=== PATIENT | female | born 1940 | race Caucasian/White ===

== ENCOUNTER → 2018-12-30 13:40 | Outpatient (CLI) | payer MEDICARE, BC, SELFPAY ==
--- NOTE | 2018-12-30 13:48 | CA_ITS ---
PROCEDURE: 2-D M-mode and color Doppler study INDICATIONS FOR THE TEST: Chest pain COPD Heart Murmur Tobacco Smokingex Palpitations Fatigue Syncope Edema Hypertension+Diabetes Mellitus Rheumatic Fever SOB TEIXEIRA Obesity Hyperlipidemia+ Family History HD Additional History CAD,STENTS,ABN EKG PATIENT INFORMATION HEIGHT: 62 WEIGHT:157 GENDER: Female B/P:143/67 2-D/M-MODE INTERPRETATION: 2-D MEASUREMENTS OBSERVED VALUES IN CMS Right Ventricular Dimension (RVDd) 2.6 Interventricular Septum (Thickness)(IVsd) 1.4 Left Ventricular Internal Dimensions(LVIDd) 5.4 Left Ventricular Posterior Wall (Thickness)(LVPWd) 0.8 Aortic Root 2.2 Aortic Cusp Separation 1.8 Left Atrial Dimensions (LAD) 3.5 2D 1. Left atrium is mildly enlarged, left ventricle is normal size, mild concentric left ventricular hypertrophy, visually estimated ejection fraction 45%, there is marked hypokinesis involving the inferior and inferobasal wall. 2. The right atrium and right ventricle are normal size and contractility. 3. The aortic valve is minimally thickened and calcified. 4. The mitral and tricuspid valvular grossly normal. 5. The pulmonic valve is poorly visualized. 6. No significant pericardial effusion noted. DOPPLER INTERROGATION: Doppler interrogation of the aortic, mitral and tricuspid valvular presence of mild mitral and tricuspid regurgitation, tricuspid regurgitation jet velocity is inadequate for calculation of the right ventricular systolic pressure, grade 1 diastolic dysfunction seen with tissue Doppler evidence of raised left atrial pressure. Inferior vena cava is normal size with normal is poorly collapse. CONCLUSION: 1. Mildly enlarged left atrium, normal left ventricular size, mild concentric left ventricular hypertrophy, visually estimated ejection fraction 45% with segmental wall motion abnormality described above. Grade 1 diastolic dysfunction seen with tissue Doppler evidence of raised left atrial pressure. 2. Mild mitral and tricuspid regurgitation. Inferior vena cava is normal size with normal inspiratory collapse. 3. No significant pericardial effusion noted.
== END ==
PROVIDERS: PCP Family Medicine; Visit Provider Nurse Practitioner Family
DX: E78.5 Hyperlipidemia, unspecified (principal); F02.80 Dementia in other diseases classified elsewhere, unspecified severity, without behavioral disturbance, psychotic disturbance, mood disturbance, and anxiety; G30.9 Alzheimer's disease, unspecified; I11.0 Hypertensive heart disease with heart failure; I25.10 Atherosclerotic heart disease of native coronary artery without angina pectoris; R42 Dizziness and giddiness; R94.31 Abnormal electrocardiogram [ECG] [EKG]; Z95.5 Presence of coronary angioplasty implant and graft
CPT/HCPCS: 93306

== ENCOUNTER → 2020-02-07 13:52 | Outpatient (CLI) | payer MEDICARE, BC, SELFPAY ==
--- NOTE | 2020-02-07 13:53 | CA_ITS ---
APPROVED REPORT EXAM: Comprehensive 2D, Doppler, and color-flow Echocardiogram Conduit Reamer Operator: Ana Pedro CRT Ht: 5 ft 2 in Wt: 154lbs BSA: 1.71 BP: 128/56 mmHg Indications: HTN, HLD, CAD, STENTS, HI, ABN EKG, Dementia, ef 45% 12/2018 2D Dimensions LVOT 1.70 cm (M/F) 1.5-2.5 M-Mode Dimensions RVDd 2.28 cm (0.9-2.6) LVDd 4.23 cm (3.5-5.7) LVDs 2.72 cm (3.5-5.7) IVSd 1.71 cm (0.6-1.1) PWd 1.04 cm (0.6-1.1) EF (Teich) 65.60% FS 35.70% EDV (Teich) 79.90 mL ESV (Teich) 27.50 mL LV Diastology E/A Ratio 0.75 Mitral Valve MV A Velocity 89.00 (40-130 cm/s) Left Ventricle Left atrium is mildly enlarged, left ventricle is normal size, mild concentric left ventricular hypertrophy, visually estimated ejection fraction 55% with no regional wall motion abnormality, grade 1 diastolic dysfunction seen without tissue Doppler evidence of raise left atrial pressure. Right Ventricle Right atrium and right ventricle are normal size and contractility. Aortic Valve Aortic valve is thickened and calcified leaflet chordae display good mobility, there is no aortic stenosis or aortic insufficiency. Mitral Valve Mitral valve leaflets are minimally thickened, there is mild mitral regurgitation. Tricuspid Valve Tricuspid valve is grossly normal, there is mild tricuspid regurgitation, tricuspid regurgitation jet velocity is inadequate for calculation of the right ventricular systolic pressure. Pulmonic Valve Pulmonic valve is poorly visualized. Great Vessels Aortic root is normal size. Pericardium No significant pericardial effusion noted. Conclusion 1. Mildly enlarged left atrium, normal left ventricular size, mild concentric left ventricular hypertrophy, visually estimated ejection fraction of 55% with no regional wall motion abnormality, grade 1 diastolic dysfunction seen without tissue Doppler evidence of raise left atrial pressure. 2. Thickened and calcified aortic valve without aortic stenosis or aortic insufficiency. 3. Mild mitral and tricuspid regurgitation. 4. No significant pericardial effusion noted. Electronically signed by : Romeo Donahue, 02/07/2020 20:08:27
== END ==
PROVIDERS: PCP Family Medicine; Visit Provider Nurse Practitioner Family
DX: E78.2 Mixed hyperlipidemia (principal); G30.9 Alzheimer's disease, unspecified; I11.0 Hypertensive heart disease with heart failure; I25.10 Atherosclerotic heart disease of native coronary artery without angina pectoris; I25.2 Old myocardial infarction; I42.9 Cardiomyopathy, unspecified; R94.31 Abnormal electrocardiogram [ECG] [EKG]; Z95.5 Presence of coronary angioplasty implant and graft
CPT/HCPCS: 93306

== ENCOUNTER 2020-12-15 16:14 | Emergency (ER) | payer MEDICARE, BC, SELFPAY ==
[2020-12-15] VITALS (7 sets, daily range): BP systolic 160–168; BP diastolic 65–148; PULSE 69–102; RESP 12–19; TEMP 36.6; O2SAT 95–98; BMI 28.3
--- NOTE | 2020-12-15 16:19 | ECG_ITS ---
APPROVED REPORT Exam: Resting ECG HR:68 bpm ECG Measurements Heart Rate 68 AXES WY 162 P 68 QRSd 68 QRS -17 QT 382 T 24 QTc 406 Conclusion Normal sinus rhythm Inferior infarct, age undetermined Cannot rule out Anterior infarct, age undetermined Abnormal ECG Electronically signed by : Fredrick Muniz, 12/16/2020 07:11:47
--- NOTE | 2020-12-15 16:31 | XR_ITS ---
PROCEDURE: XR CHEST PORTABLE CLINICAL HISTORY: soa COMPARISON: No exams were available for comparison FINDINGS: The cardiomediastinal silhouette and pulmonary vascularity are within normal limits. Coronary artery calcifications or stents are present. The lungs are clear. Degenerative changes right shoulder. Postsurgical changes lumbar spine. IMPRESSION: No acute findings. Dictated by: Iftikhar Rivera MD 12/15/2020 17:50 Iftikhar Rivera MD in [place] 12/15/2020 17:50
--- NOTE | 2020-12-15 16:43 | HMH.EDGENADL ---
ED Disposition Clinical Impression: Chest pain Disposition: Home, Self-Care Condition on Discharge: Good Additional Instructions: Return to the emergency department for worsening chest pain shortness of breath or any other concerns within the next 8 hours otherwise follow-up with your primary care physician within the next few days Referrals: [facility] [Primary Care Provider] - - Critical Care Critical Care Time: No Attestation: On 12/15/20, the high probability of a clinically significant, sudden or life threatening deterioration of the following system(s) required my full and direct attention, intervention and personal management. The time I documented below is in addition to time spent performing reported procedures but includes the following listed in this critical care notation. Medical Decision Making - Medical Records Medical records reviewed: Yes: I reviewed the patient's medical records. - Andreas Inquiry Pt receiving controlled substance: No Vital Signs: 12/15/20 16:14 12/15/20 17:14 12/15/20 17:15 Temperature 97.8 F Temperature Source Oral Pulse Rate 78 69 Pulse Rate [Left Radial] 71 Respiratory Rate 16 19 16 Blood Pressure Blood Pressure [Right Arm] 160/65 H Blood Pressure Mean Blood Pressure Mean [Right Arm] 96 Blood Pressure Source [Right Arm] Automatic Cuff Blood Pressure Position [Right Arm] Sitting 02 Sat by Pulse Oximetry 97 96 96 Oxygen Delivery Method Room Air Room Air Room Air 12/15/20 17:30 12/15/20 17:33 12/15/20 17:45 Temperature Temperature Source Pulse Rate 74 74 102 H Pulse Rate [Left Radial] Respiratory Rate 15 12 18 Blood Pressure 166/148 H Blood Pressure [Right Arm] Blood Pressure Mean 152 Blood Pressure Mean [Right Arm] Blood Pressure Source [Right Arm] Blood Pressure Position [Right Arm] 02 Sat by Pulse Oximetry 95 96 98 Oxygen Delivery Method Room Air Room Air - Lab Data Lab Results 12/15/20 16:44: WBC 8.2, RBC 4.41, Hgb 13.4, Hct 42.1, MCV 95.5, MCH 30.4, MCHC 31.8, RDW 12.5, Plt Count 246, MPV 7.7, Neut % (Auto) 60.5, Lymph % (Auto) 28.4, [place] % (Auto) 5.7, Eos % (Auto) 4.2, Baso % (Auto) 1.2, Neut # (Auto) 5.0, Lymph # (Auto) 2.3, [place] # (Auto) 0.5, Eos # (Auto) 0.4, Baso # (Auto) 0.1 12/15/20 16:44: D-Dimer 0.49 12/15/20 16:44: Sodium 140, Potassium 4.0, Chloride 110 H, Carbon Dioxide 25, Anion Gap 9.0, BUN 23 H, Creatinine 1.00, Estimated Creat Clear 49, Estimated GFR 53 L, Est GFR ( Amer) 64, Glucose 113 H, Calcium 9.1, Troponin I < 0.01 12/15/20 18:45: Troponin I < 0.01 Result diagrams: 12/15/20 16:44 12/15/20 16:44 Orders (Tests/Meds): ORDERS Category Date Time Status Troponin I Q3H Lab 12/15/20 22:45 Ordered Medical Decision Narrative: 80-year-old female presents with chest pain as above. Moderate risk for acute myocardial infarction however history is atypical. Initial EKG was unremarkable. Troponin was obtained. Patient is low risk for pulmonary embolism and per Wells score, D-dimer obtained. Atypical for pneumothorax or aortic dissection. Initial troponin and repeat troponin were negative. D-dimer was negative as well. Chest pain has been resolved and the patient is requesting to be discharged home. Plan to discharge with recommendation to follow-up and return precautions General Adult HPI - General Chief complaint: Shortness of Breath/Dyspnea Stated complaint: SOB Time Seen by Provider: 12/15/20 16:20 Mode of Arrival: Ambulatory Limitations: No Limitations Description of Symptoms (Recalled from ER Triage Doc. by RN): Pt c/o soa and chest pain that goes into her left arm for a few days - History of Present Illness HPI narrative: 80-year-old female presents with left-sided chest pain for few days improving. She says the pain is sharp and pleuritic but does radiate to her left arm. It does not feel like prior myocardial infarction. Not worse with movement. No
[2020-12-15 16:51] LABS: Basophils # 0.1 K/mm3 (0-0.2); Basophils % 1.2 % (0.1-2.0); Eosinophils # 0.4 K/mm3 (0.0-0.4); Eosinophils % 4.2 % (0.1-12.0); Hematocrit 42.1 % (37.0-47.0); Hemoglobin 13.4 g/dL (12.2-16.2); Lymphocytes # 2.3 K/mm3 (0.7-4.5); Lymphocytes % 28.4 % (10-50); Mean Corpuscular HGB Conc 31.8 g/dL (31.8-35.4); Mean Corpuscular Hemoglobin 30.4 pg (27.0-31.2); Mean Corpuscular Volume 95.5 fl (81-99); Mean Platelet Volume 7.7 fl (7.4-10.4); Monocytes # 0.5 K/mm3 (0.1-1.0); Monocytes % 5.7 % (1.7-9.3); Neutrophils % 60.5 % (37.0-80.0); Platelet Count 246 K/mm3 (142-424); Red Blood Count 4.41 M/mm3 (4.20-5.40); Red Cell Distribution Width 12.5 % (11.5-17.5); White Blood Count 8.2 K/mm3 (4.8-10.8)
[2020-12-15 16:55] LABS: Chloride 110 mmol/L (98-107); Sodium 140 mmol/L (136-145)
[2020-12-15 16:57] LABS: Blood Urea Nitrogen 23 mg/dl (7-17); Creatinine Clearance Estimated 49 mL/min (50-200); Estimated Glomerular Filt Rate 53 ml/min (>60); GFR (African American) 64 ML/MIN (>60)
[2020-12-15 16:58] LABS: Calcium 9.1 mg/dl (8.4-10.2); Carbon Dioxide 25 mmol/L (22.0-30.0); Glucose 113 mg/dl (74-100)
[2020-12-15 17:05] LABS: D-Dimer 0.49 ug/mL (0.0-0.5)
[2020-12-15 17:18] LABS: Troponin I < 0.01 ng/ml (0.00-0.034)
[2020-12-15 19:16] LABS: Troponin I < 0.01 ng/ml (0.00-0.034)
== END 2020-12-15 19:41 | disposition home or self-care (01) ==
PROVIDERS: Emergency Provider Emergency Medicine; PCP Family Medicine
DX: R07.9 Chest pain, unspecified (principal); Z87.891 Personal history of nicotine dependence; Z88.8 Allergy status to other drugs, medicaments and biological substances; I25.2 Old myocardial infarction; Z79.899 Other long term (current) drug therapy
CPT/HCPCS: 71045; 80048; 84484; 85025; 85378; 93005; 99282

== ENCOUNTER → 2021-02-21 11:21 | Outpatient (CLI) | payer MEDICARE, BC, SELFPAY ==
--- NOTE | 2021-02-21 11:21 | NM_ITS ---
APPROVED REPORT Exam: Nuclear Stress Test Indication: CAD, HTN, HYPERLIPIDEMIA, FM HX, ANGINA, C.P. Patient Location: Outpatient Stress Tech: Didi Spaulding [place] Tech:Analilia ShanksREGIS RT (R)(N)(M) Ht: 5 ft 2 in Wt: 148 lbs Bra Size: D HR: 59 bpm BP: 156/63 mmHg BSA: 1.68 m2 BMI: 27.0 History: CAD, HTN, HYPERLIPIDEMIA, FM HX, ANGINA, C.P. Procedure: Patient received a 0.4 mg of intravenous Lexiscan, resting heart rate 59 bpm, resting blood pressure 156/63 mmHg, with Lexiscan maximum heart rate achived was 89 bpm which is Less than 85 % of the maximum predicted heart rate and blood pressure was 170/71 mmHg. With Lexiscan, patient denied any complaint of chest pain. Electrocardiogram Resting electrocardiogram showed sinus rhythm, possible inferior lateral IA, with Lexiscan there is less than 1.[address] segment depression noted from the baseline EKG. The EKG portion of the Lexiscan is nondiagnostic. Cardiac Stress and Resting SPECT Images: Cardiac Stress and Resting SPECT images were obtained using technetium 99m Myoview 30.1 mCi stress and 10.20 mCi at rest. Gated SPECT for analysis of segmental wall motion and calculation of the ejection fraction also done. Cardiac stress and resting SPECT images show partial reversible defect involving the inferolateral wall consistent with mixed ischemia and scar, computer derived ejection fraction is 62% with moderate posterolateral wall hypokinesis, there is transient ischemic dilatation of the left ventricle seen, raising the concern for presence of multivessel coronary artery disease. Conclusion: 1. The EKG portion of the Lexiscan is nondiagnostic. 2. Scintigraphic evidence of mixed ischemia and scar involving the inferolateral wall, there is transient ischemic dilatation of the left ventricle seen, raising concerns for presence of multivessel coronary artery disease. Computer derived ejection fraction 62% with segmental wall motion abnormality described above. 3. Abnormal Lexiscan Myoview study. Electronically signed by : Romeo Donahue, 02/22/2021 13:53:08
--- NOTE | 2021-02-21 13:30 | CA_ITS ---
APPROVED REPORT Exam: Pharmacologic Technologist: Didi Spaulding, Ht: 5 ft 2 in Wt: 141 lbs BSA: 1.65 m2 HR: 59 bpm BP: 156/63 mmHg Rhythm: NSR, Q WAVES AND T WAVE ABNS SUGGESTING OLD INFEROLATERAL [place] Indications: Chest pain Medical History Medical History: HTN, Hyperlipidemia Medications: Omeprazole,,,,, Aspirin,,,,, Gabapentin,,,,, Losartan,,,,, Atorvastatin,,,,, Carvedilol,,,,, Calcium,,,,, Acetaminophen,,,,, BuPROPION,,,,, Nitroglycerin,,,,, MeMANTINE,,,,, CyANOCobalamin,,,,, Cardiac Risk Factors: HTN, Hyperlipidemia, FHX of CAD Stress Test Details Test: LEXISCAN HR Resting HR: 59 bpm Max Heart Rate (APMHR): 139.653054 bpm Max HR Achieved: 90 bpm Target HR (85% APMHR): 118.941855 bpm % of APMHR: 64.75 Recovery HR: 76 bpm BP Resting BP: 156/63 mmHg Max BP: 171/69 mmHg Recovery BP: 139.0/60.0 mmHg ECG Resting ECG: NSR, Q WAVES AND T WAVE ABNS SUGGESTING OLD INFEROLATERAL [place]. Clinical Exercise duration: 04:03 min Highest Stage Achieved: Exercise capacity: 1.0 METs Stress ECG Conclusion PT BECAME SOA, MILD CHEST TIGHTNESS, AND MILD LIGHTHEADED. RARE PVC. NO SIGNIFICANT ST CHANGES. UNREMARKABLE LEXISCAN STRESS. MYOVIEW IMAGES REPORTED SEPERATELY. Electronically signed by : Romeo Donahue, 02/22/2021 13:49:17
== END ==
PROVIDERS: PCP Family Medicine; Visit Provider Urology
DX: E78.2 Mixed hyperlipidemia (principal); I11.0 Hypertensive heart disease with heart failure; I42.9 Cardiomyopathy, unspecified; Z95.5 Presence of coronary angioplasty implant and graft; I20.8 Other forms of angina pectoris
CPT/HCPCS: 78452; 93017; A9502; J2785

== ENCOUNTER → 2021-03-14 15:02 | Outpatient (CLI) | payer MEDICARE, BC, SELFPAY ==
[2021-03-14 15:38] LABS: Basophils # 0.1 K/mm3 (0-0.2); Basophils % 1.2 % (0.1-2.0); Eosinophils # 0.5 K/mm3 (0.0-0.4); Eosinophils % 5.5 % (0.1-12.0); Hematocrit 37.6 % (37.0-47.0); Hemoglobin 13.1 g/dL (12.2-16.2); Lymphocytes # 2.4 K/mm3 (0.7-4.5); Lymphocytes % 27.1 % (10-50); Mean Corpuscular Hemoglobin 31.7 pg (27.0-31.2); Mean Corpuscular Volume 90.7 fl (81-99); Monocytes # 0.6 K/mm3 (0.1-1.0); Monocytes % 6.7 % (1.7-9.3); Neutrophils # 5.4 K/mm3 (1.8-7.8); Neutrophils % 59.6 % (37.0-80.0); Platelet Count 249 K/mm3 (142-424); Red Blood Count 4.14 M/mm3 (4.20-5.40); Red Cell Distribution Width 12.5 % (11.5-17.5)
[2021-03-14 19:53] LABS: Anion Gap 9.4 mEq/L (5-15); Blood Urea Nitrogen 28 mg/dl (7-17); Calcium 9.4 mg/dl (8.4-10.2); Carbon Dioxide 26 mmol/L (22.0-30.0); Chloride 110 mmol/L (98-107); Estimated Glomerular Filt Rate 39 ml/min (>60); GFR (African American) 48 ML/MIN (>60); Glucose 127 mg/dl (74-100); Potassium 4.4 mmoL/L (3.5-5.1); Sodium 141 mmol/L (136-145)
== END ==
PROVIDERS: Visit Provider Nurse Practitioner Family
DX: E78.2 Mixed hyperlipidemia (principal); I11.0 Hypertensive heart disease with heart failure; I25.118 Atherosclerotic heart disease of native coronary artery with other forms of angina pectoris; I42.9 Cardiomyopathy, unspecified; Z95.5 Presence of coronary angioplasty implant and graft; Z01.812 Encounter for preprocedural laboratory examination; Z20.822 Contact with and (suspected) exposure to COVID-19
CPT/HCPCS: 36415; 80048; 85025; U0003

== ENCOUNTER 2021-03-16 08:24 | Day surgery (SDC) | payer MEDICARE, BC, SELFPAY ==
[2021-03-16] VITALS (13 sets, daily range): BP systolic 128–165; BP diastolic 61–125; PULSE 50–85; RESP 13–20; O2SAT 96–100; BMI 26.2
--- NOTE | 2021-03-16 | IR_ITS ---
APPROVED REPORT Patient Location: Outpatient Outpatient Services Director: REGIS Gifford RT (R) PROCEDURES Left heart catheterization Left ventriculogram Selective coronary angiogram Drug-eluting stent deployment to the distal dominant right coronary followed by drug-eluting stent deployment to the ostial dominant right coronary INDICATION High risk abnormal Myoview, Angina pectoris, Coronary disease Informed consent was obtained prior to the procedure. COMPLICATIONS NONE Estimated Blood Loss: LESS THAN 10 ML TECHNIQUE One percent lidocaine used to anesthetize the right anterior aspect of the wrist. The right radial artery was accessed via the Seldinger technique. A 6 Tongan sheath was placed in the right radial artery. 2.5 mg of verapamil, 800 mcg of nitroglycerin, 1mg Lidocaine and 5000 U Heparin were given through the arterial sheath. The Poppa catheter was also used to perform left heart catheterization, left ventriculogram and selective coronary angiogram. At the end the diagnostic angiogram therapeutic heparin was administered. The left main artery cannot be cannulated using the Poppa catheter. Because the Poppa catheter was already in and the right coronary artery would require revascularization and patient was known prior to the cardiac catheterization not to be a surgical candidate based on her medical conditions etc., it was decided to revascularize the right coronary artery prior to looking at the left coronary artery. The Poppa catheter was placed back in the right coronary artery after therapeutic ACT was obtained giving therapeutic heparin. A 3 mm x 15 mm resolute Adi stent was placed distally in the right coronary artery and reduce the severe stenosis at 22 raquel. An additional 3.5 x 8 mm resolute [place] stent was placed ostially but then ruptured at 18 raquel. A 3.75 x 8 mm noncompliant balloon was then deployed at 20 raquel to post dilate giving excellent angiographic results. After achieving excellent angiographic results the catheter was exchanged for a 6 Tongan JL 3 guide catheter. Diagnostic angiography was performed. At the end of the procedure the apparatus was removed the sheath was removed good hemostasis was achieved using TR banding patient was transferred to the postop putting in stable condition ANGIOGRAPHIC RESULTS The left main artery Normal The left anterior descending artery Has proximal 20% stenosis preceding a stent in the proximal segment which extends throughout the mid segment. The stent is widely patent with minimal in-stent restenosis and has excellent distal transitioning. Stent in the ostial proximal mid large first diagonal artery is widely patent with minimal mid vessel concentric 30% in-stent restenosis with excellent distal transitioning The circumflex artery Is a dominant vessel Very small vessel which has severe proximal disease then subtotally occluded supplying a 1 mm obtuse marginal artery. The right coronary artery Is a large dominant vessel and has an ostial 50 to 60% stenosis followed by a stent which start in the proximal segment and are contiguous throughout into the distal segment. 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
[2021-03-16 11:29] LABS: CATHL Activated Clotting Time > 400 SEC (74-125)
--- NOTE | 2021-03-16 13:32 | HMH.PHACLD ---
Marline Bruce has received discharge medication counseling on the following medications: PATIENT IS CURRENTLY TAKING CARVEDILOL 3.125 MG BID, LOSARTAN 25 MG DAILY, ATORVASTATIN 40 MG DAILY, AND ASPIRIN DR 81 MG DAILY. MD ADDED CLOPIDOGREL 75 MG DAILY POST PROCEDURE.
== END 2021-03-16 14:17 | disposition home or self-care (01) ==
LOC: CATHLAB 08:27
PROVIDERS: PCP Family Medicine; Visit Provider Internal Medicine
DX: I25.118 Atherosclerotic heart disease of native coronary artery with other forms of angina pectoris (principal); T82.855A Stenosis of coronary artery stent, initial encounter; I11.9 Hypertensive heart disease without heart failure; E78.5 Hyperlipidemia, unspecified; I42.9 Cardiomyopathy, unspecified; Z95.5 Presence of coronary angioplasty implant and graft; Z79.899 Other long term (current) drug therapy; Z87.891 Personal history of nicotine dependence; Z79.82 Long term (current) use of aspirin; Z88.2 Allergy status to sulfonamides; Z88.8 Allergy status to other drugs, medicaments and biological substances; Y83.1 Surgical operation with implant of artificial internal device as the cause of abnormal reaction of the patient, or of later complication, without mention of misadventure at the time of the procedure
CPT/HCPCS: 85347; 92928; 93458; 99152; 99153; C1725; C1769; C1876; C9600; J1644; Q9967

== ENCOUNTER → 2021-03-28 14:25 | Outpatient (CLI) | payer MEDICARE, BC, SELFPAY ==
[2021-03-28 14:49] LABS: Basophils # 0.1 K/mm3 (0-0.2); Basophils % 0.7 % (0.1-2.0); Eosinophils # 0.6 K/mm3 (0.0-0.4); Eosinophils % 5.9 % (0.1-12.0); Hematocrit 36.1 % (37.0-47.0); Hemoglobin 12.7 g/dL (12.2-16.2); Lymphocytes # 2.6 K/mm3 (0.7-4.5); Lymphocytes % 27.4 % (10-50); Mean Corpuscular HGB Conc 35.2 g/dL (31.8-35.4); Mean Corpuscular Hemoglobin 31.7 pg (27.0-31.2); Monocytes # 0.5 K/mm3 (0.1-1.0); Monocytes % 5.7 % (1.7-9.3); Neutrophils # 5.7 K/mm3 (1.8-7.8); Neutrophils % 60.3 % (37.0-80.0); Platelet Count 261 K/mm3 (142-424); Red Blood Count 4.01 M/mm3 (4.20-5.40); Red Cell Distribution Width 12.8 % (11.5-17.5); White Blood Count 9.4 K/mm3 (4.8-10.8)
[2021-03-28 16:11] LABS: Anion Gap 17.3 mEq/L (5-15); Blood Urea Nitrogen 26 mg/dl (7-17); Carbon Dioxide 19 mmol/L (22.0-30.0); Chloride 110 mmol/L (98-107); Estimated Glomerular Filt Rate 48 ml/min (>60); GFR (African American) 58 ML/MIN (>60); Glucose 131 mg/dl (74-100); Potassium 4.3 mmoL/L (3.5-5.1); Sodium 142 mmol/L (136-145)
== END ==
PROVIDERS: Visit Provider Internal Medicine
DX: Z95.5 Presence of coronary angioplasty implant and graft (principal); I11.9 Hypertensive heart disease without heart failure
CPT/HCPCS: 36415; 80048; 85025